=== PATIENT | female | born 1975 | race Caucasian/White ===

== ENCOUNTER 2020-05-17 06:10 | Emergency (ER) | payer MEDICAID ==
[~2020-05-17] VITALS: Ht 160 cm; Wt 87.1 kg
[2020-05-17 06:13] VITALS: BP 123/85
--- NOTE | 2020-05-17 06:24 | NUR ---
PT AMBULATED TO BED 11 WITH STEADY GAIT
--- NOTE | 2020-05-17 06:24 | NUR ---
URINE SAMPLE AT BEDSIDE
--- NOTE | 2020-05-17 06:26 | NUR ---
ADMITTED PT TO ER BED 11. BIB SELF TO ER C/O LOWER ABDOMINAL PAIN RADIATING TO THE BACK X 2DAYS NOW. PAIN IS 10/10, DESCRIBED CRAMPING PER PT. C/O NAUSEA & NO VOMITING NOTED. PT VERBALIZED THAT SHE TOOK TYLENOL LAST NIGHT FOR THE PAIN. ALLERGY: CONTRAST/DYE PMH: CHOLECYSTECTOMY, HYSTERECTOMY, LEUKEMIA AT AGE 5 MEDS AT HOME : PROZAC
--- NOTE | 2020-05-17 06:26 | NUR ---
DR DAILEY AT BEDSIDE EVALUATING PT
--- NOTE | 2020-05-17 06:29 | NUR ---
LAB AT BEDSIDE
[2020-05-17] MEDS ORDERED: KETOROLAC 30 MG/ML VIAL IVP ONE (06:30)
[2020-05-17] MEDS ORDERED: NACL 0.9% 1,000 ML IV ONE (06:30)
[2020-05-17] MEDS ORDERED: ONDANSETRON 4 MG/2 ML VIAL IVP ONE (06:30)
[2020-05-17] MEDS ORDERED: KETOROLAC 30 MG/ML VIAL ONE (06:33)
[2020-05-17 06:37] LABS: BASOPHILS # (AUTO) 0.1 K/uL (0.00-0.22); BASOPHILS % (AUTO) 0.6 % (0.0-2.0); EOSINOPHILS % (AUTO) 0.3 % (0.0-4.0); HEMATOCRIT 40.1 % (36-48); HEMOGLOBIN 13.1 g/dL (12.0-16.0); LYMPHOCYTES # (AUTO) 2.3 K/uL (2.5-16.5); LYMPHOCYTES % (AUTO) 20.5 % (20.5-51.1); MEAN CORPUSCULAR HEMOGLOBIN 29 pg (27-31); MEAN CORPUSCULAR HGB CONC 33 g/dL (33-37); MEAN CORPUSCULAR VOLUME 87.5 fL (80-94); MONOCYTES # (AUTO) 0.8 K/uL (0.8-1.0); MONOCYTES % (AUTO) 6.7 % (1.7-9.3); NEUTROPHILS # (AUTO) 8.2 K/uL (1.8-7.7); NEUTROPHILS % (AUTO) 71.9 % (42.2-75.2); PLATELET COUNT (AUTO) 270 K/uL (140-450); RED BLOOD CELL COUNT(AUTO) 4.59 MIL/uL (4.20-5.40); RED CELL DISTRIBUTION WIDTH 14.1 % (11.6-13.7); WHITE BLOOD COUNT (AUTO) 11.4 K/uL (4.8-10.8)
[2020-05-17 06:39] LABS: APPEARANCE,URINE SL CLOUDY (CLEAR); BILIRUBIN,URINE NEGATIVE (NEGATIVE); BLOOD, URINE TRACE-I (NEGATIVE); COLOR,URINE YELLOW (YELLOW); LEUKOCYTE ESTERASE ,URINE NEGATIVE (NEGATIVE); NITRITE, URINE POSITIVE (NEGATIVE); PH,URINE 5.5 (5.0-9.0); UGLUCOSE NEGATIVE (NEGATIVE)
--- NOTE | 2020-05-17 06:49 | NUR ---
pt taken to CT via [facility]
[2020-05-17] MEDS ORDERED: cefTRIAXone 1,000 MG VIAL ONE (06:51)
--- NOTE | 2020-05-17 06:57 | NUR ---
PT BACK FROM CT SCAN
[2020-05-17 06:59] LABS: ANION GAP 14.6 (8-16); CARBON DIOXIDE 28.3 mmol/L (21-32); POTASSIUM 3.9 mmol/L (3.5-5.1)
--- NOTE | 2020-05-17 07:00 | NUR ---
pt placed on telemetry monitor. bed locked and in lowest position. side rails x1.
[2020-05-17 07:05] LABS: ALBUMIN 3.5 g/dL (3.4-5.0); TOTAL BILIRUBIN 0.4 mg/dL (0.0-1.0)
--- NOTE | 2020-05-17 07:05 | NUR ---
BLOOD CULTURES COLLECTED AND SENT TO LAB
--- NOTE | 2020-05-17 07:16 | NUR ---
REPORT GIVEN TO SACHIN ROSADO. TRANSFER OF CARE AT THIS TIME.
--- NOTE | 2020-05-17 07:16 | NUR ---
OBTAINED REPORT FROM MERON ROSADO FOR CONTINUITY OF CARE
[2020-05-17 07:17] LABS: RBC,URINE 0-5 /HPF (0-5)
[2020-05-17 07:18] LABS: WBC,URINE 0-5 /HPF (0-5)
--- NOTE | 2020-05-17 07:19 | NUR ---
PT RESTING IN BED, SIDE RAIL X1
--- NOTE | 2020-05-17 07:50 | NUR ---
Dr. Orr is evaluating the patient at bedside.
[2020-05-17 08:24] VITALS: BP 116/79
--- NOTE | 2020-05-17 08:24 | NUR ---
Patient discharged with v/s stable. Written and verbal after care instructions given and explained. Patient alert, oriented and verbalized understanding of instructions. Ambulatory with steady gait. All questions addressed prior to discharge. ID band removed. Patient advised to follow up with PMD. Rx of motrin,cipro given. Patient educated on indication of medication including possible reaction and side effects. Opportunity to ask questions provided and answered.
== END 2020-05-17 08:24 | disposition home or self-care (01) ==
LOC: MED 06:10
DX: N39.0 Urinary tract infection, site not specified (principal); R51 Headache; Z90.49 Acquired absence of other specified parts of digestive tract; Z90.711 Acquired absence of uterus with remaining cervical stump
CPT/HCPCS: 36415; 74176; 80053; 81001; 81025; 83690; 85025; 87040; 87086; 87186; 96361; 96374; 96375; 99284; J0696; J1885; J2405; J7030